=== PATIENT | female | born 1960 | race African-American/Black ===

== ENCOUNTER 2023-01-31 12:47 | Emergency (ER) | payer OTHER ==
[~2023-01-31] VITALS: Ht 162.6 cm; Wt 91.0 kg
[2023-01-31 12:49] VITALS: O2SAT 100
[2023-01-31] MEDS ORDERED: IPRATROPIUM BROMIDE (0.02%) 0.5MG/2.5ML NEB HHN STA (13:54)
[2023-01-31] MEDS ORDERED: PREDNISONE 20MG TABLET PO STA (13:54)
[2023-01-31 15:15] LABS: ALANINE AMINOTRANSFERASE 12 IU/L (10-49); ASPARTATE AMINOTRANSFERASE 15 IU/L (<34); BILIRUBIN TOTAL 0.6 mg/dL (0.1-1.0); CALCIUM 9.2 mg/dL (8.7-10.4); CARBON DIOXIDE 28 mEq/L (21-32); CHLORIDE 106 mEq/L (98-107); CREATININE 0.9 mg/dL (0.6-1.0); GLUCOSE 191 mg/dL (70-105); POTASSIUM 3.3 mEq/L (3.5-5.1); PROTEIN TOTAL 6.9 g/dL (6.0-8.3); SODIUM 142 mEq/L (136-145); UREA NITROGEN BLOOD 18 mg/dL (9-23)
[2023-01-31 15:18] LABS: BASOPHILS % 0.8 % (0.0-2.0); EOSINOPHILS % 3.9 % (0.0-5.0); HEMATOCRIT. 39.1 % (36.0-48.0); LYMPHOCYTES % 38.4 % (20.0-50.0); MEAN CORPUSCULAR HEMOGLOBIN 28.2 pg (28.0-32.0); MEAN CORPUSCULAR HGB CONC 33.2 g/dL (31.0-37.0); MONOCYTES % 9.6 % (2.0-8.0); NEUTROPHILS % 47.3 % (40.0-76.0); PLATELET 205 x1000/uL (130-400); RED CELL DISTRIBUTION WIDTH 14.1 % (11.6-14.6); WHITE BLOOD COUNT 5.8 x1000/uL (4.5-11.0)
[2023-01-31 15:20] LABS: DIFFERENTIAL COMMENT 1
[2023-01-31 15:55] LABS: TROPONIN I HIGH SENSITIVITY < 4 ng/L (3.0-34)
[2023-01-31] MEDS ORDERED: PREDNISONE 20MG TABLET PO NR (16:45)
[2023-01-31 17:22] LABS: TROPONIN I HIGH SENSITIVITY 4 ng/L (3.0-34)
[2023-01-31 17:25] VITALS: PULSE 84; RESP 20
[2023-01-31] MEDS ORDERED: IPRATROPIUM BROMIDE (0.02%) 0.5MG/2.5ML NEB HHN NR (17:30)
[2023-01-31] MEDS ORDERED: P20 MT (19:56)
[2023-01-31] MEDS ORDERED: ALBU6.7H15 INH (19:56)
[2023-01-31 23:26] VITALS: BP 108/76; PULSE 99; RESP 20; TEMP 98.2
== END 2023-01-31 23:27 | disposition home or self-care (01) ==
LOC: ER 12:47
DX: J45.901 Unspecified asthma with (acute) exacerbation (principal); E11.9 Type 2 diabetes mellitus without complications
CPT/HCPCS: 80053; 85025; 84484; 36415; 71045; 94640; 93005; 99285; J7512; Z7610 ×2